=== PATIENT | male | born 1970 | race Caucasian/White ===

== ENCOUNTER → 2016-10-12 | Outpatient (CLI) | payer BC ==
--- NOTE | 2016-10-12 09:55 | US ---
EXAMINATION TYPE: US abdomen complete DATE OF EXAM: 10/12/2016 COMPARISON: NONE CLINICAL HISTORY: R10.9 ABD Pain. epigastric pain x 1 week that is worsening EXAM MEASUREMENTS: Liver Length: 13.7 cm Gallbladder Wall: 0.2 cm CBD: 0.6 cm Spleen: 10.2 cm Right Kidney: 10.9 x 5.2 x 5.1 cm Left Kidney: 11.3 x 5.9 x 5.7 cm Pancreas: visualized portions appear echogenic Liver: difficult to penetrate, some fatty sparing noted around gallbladder. Gallbladder: small 0.4 cm echogenic foci that appears stationary. Evidence for sonographic Cortez's sign: No CBD: wnl Spleen: wnl Right Kidney: No hydronephrosis or masses seen Left Kidney: No hydronephrosis or masses seen Upper IVC: wnl Abd Aorta: wnl The liver is heterogenous in its overall echo appearance may reflect fatty liver versus diffuse hepat ocellular disease. focal fatty sparing noted. The intrahepatic portion of the IVC and proximal abdom inal aorta are within normal limits. Adherent Gallstone versus polyp. Common bile duct is unremarkabl e. The visualized portions of the pancreas are homogenous. The spleen is unremarkable. Kidneys are symmetric and free of hydronephrosis. No renal lesions are seen. IMPRESSION: 1. Fatty liver with areas of focal fatty sparing. 2. Adherent gallstone versus polyp.
== END ==
LOC: RADUSWWP 09:10
PROVIDERS: ATTEND Family Medicine
DX: K76.0 Fatty (change of) liver, not elsewhere classified (principal)
CPT/HCPCS: 76700

== ENCOUNTER 2023-01-15 07:44 | Day surgery (SDC) | payer BC ==
[2023-01-13 12:24] VITALS: BMI 31.4
[~2023-01-15 07:44] MED LIST: LACTATED RINGERS 1,000 ML IV SCH; LIDOCAINE 1% (10MG/ML) FOR IV START INTRADERMA PRN
[2023-01-15] MEDS ORDERED: PROPOFOL 10 MG/ML 20 ML VIAL IV ONE (08:24)
[2023-01-15 08:26] VITALS: RESP 16; TEMP 97.8
--- NOTE | 2023-01-15 08:42 | P.PCN ---
Date of Procedure: 01/15/23 Procedure(s) Performed: BRIEF HISTORY: Patient is a 52-year-old pleasant white male scheduled for an elective colonoscopy as a part of screening for colon cancer. PROCEDURE PERFORMED: Colonoscopy with snare polypectomy. PREOPERATIVE DIAGNOSIS: Screening for colon cancer. IV sedation per Anesthesia. PROCEDURE: After informed consent was obtained, the patient, was brought into the endoscopy unit. IV sedation was administered by Anesthesia under continuous monitoring. Digital rectal examination was normal. Initially the Olympus CF-160 flexible video colonoscope was then inserted in the rectum, gradually advanced into the cecum without any difficulty. Careful examination was performed as the scope was gradually being withdrawn. Ileocecal valve and the appendiceal orifice were visualized and appeared normal. Prep was excellent. Mucosa of the cecum, normal. In the ascending colon there was a 1 cm flat polyp removed by snare polypectomy. Rest of the ascending colon, transverse colon, descending colon, appeared normal. In the sigmoid: There was a 1.2 cm polyp removed by snare polypectomy. Rest of the sigmoid colon, and rectum appeared normal. Retroflexion was performed in the rectum and no lesions were seen. The patient tolerated the procedure well. IMPRESSION: 1 cm flat ascending colon polyp status post polypectomy 1.2 cm sigmoid: Polyp status post-polypectomy RECOMMENDATIONS: Findings of this examination were discussed with the patient as well as his family. He was advised to follow with the biopsy results. If the biopsies adenoma he can have a repeat colonoscopy in 3 years..
[2023-01-15 09:12] VITALS: BP 142/76; PULSE 75
== END 2023-01-15 09:08 | disposition home or self-care (01) ==
LOC: ORWHC2ENDO 07:44
PROVIDERS: ATTEND Internal Medicine Gastroenterology
DX: Z12.11 Encounter for screening for malignant neoplasm of colon (principal); D12.5 Benign neoplasm of sigmoid colon; D12.2 Benign neoplasm of ascending colon; E78.5 Hyperlipidemia, unspecified; F17.200 Nicotine dependence, unspecified, uncomplicated
CPT/HCPCS: 88305; 45385; J2704

== ENCOUNTER 2023-11-16 08:00 | Observation (INO) | payer BC ==
[~2023-11-16 08:00] MED LIST changes: +ASPIRIN 81 MG ONE; -LACTATED RINGERS 1,000 ML IV SCH; -LIDOCAINE 1% (10MG/ML) FOR IV START INTRADERMA PRN; +NITROGLYCERIN SL TABS 0.4 MG TAB SUBLINGUAL ONE
[2023-11-16] MEDS ORDERED: NITROGLYCERIN OINT 1 INCH/GM PACKET TOPICAL ONE (08:30)
--- NOTE | 2023-12-08 15:29 | CA ---
Stress Echo Report Tono Araiza Age: 53 Gender: M : 1970 Exam Date: 11/16/2023 11:45 Exam Location: [facility] Ht (in): 73 Wt (lb): 235 Ordering Physician: jodi Referring Physician: JODI, [employer] Operator: Raymond Pearson Technologist Procedure CPT: Indication: ICD-9 Codes: Rhythm: Patient History: Cardiac Medications: Medications in past 24 hours: Contrast: N/A Stress Results Protocol: Richar Total dose(mL): na Exercise Duration (min:sec): 7:[address] Depression (mm): Angina Score: Gonzalez Score: METS: 8.7 Resting HR: 65 Resting BP: 101 / 54 Peak HR: 159 Peak BP: 201 / 63 Max Predicted HR: 165 96 % Max Predicted HR Target HR: 140 Double Product: [id number] Stress Summary: BP Response: Reason for Termination: MAX EXERTION/TARGET HR Cardiac Symptoms: NO SYMPTOMS ECG Analysis Resting ECG: Normal sinus rhythm, normal ECG Stress ECG: No abnormal ST/T wave changes with exercise Arrhythmia: None Echo Analysis Resting Echo: Normal resting echocardiogram. Peak Echo Analysis: Normal wall thickening in motion MEASUREMENTS (Male/Female) Normal Values CONCLUSIONS 1. Average exercise tolerance 2. Normal electrocardiographic response to exercise 3. Normal stress echocardiogram with no evidence of stress induced ischemia Dr. Alejandra Wheeler MD (Electronically Signed) Final Date: 16 November 2023 12:57
--- NOTE | 2023-12-14 10:18 | XR ---
Tono Araiza ID: [id number] : 1970 EXAMINATION TYPE: XR chest 2V DATE OF EXAM: 11/16/2023 COMPARISON: None HISTORY: 53 year-old male chest pain for 2 hours TECHNIQUE: PA and lateral views FINDINGS: Heart normal size. Aorta and pulmonary vasculature within normal limits. There is some mild strandy/p atchy density in the lower lungs. Mild hyperinflation. Otherwise, no consolidation or pleural effusio n. IMPRESSION: Correlate for underlying COPD. Some mild densities of the lower lung suspected atelectasis. No defin ite acute process.
== END 2023-11-16 15:33 | disposition home or self-care (01) ==
LOC: 1SOBS 08:00
PROVIDERS: ADMIT Internal Medicine; ATTEND Internal Medicine
DX: R07.89 Other chest pain (principal); E78.5 Hyperlipidemia, unspecified; K21.9 Gastro-esophageal reflux disease without esophagitis; R60.9 Edema, unspecified; J44.9 Chronic obstructive pulmonary disease, unspecified; F17.210 Nicotine dependence, cigarettes, uncomplicated; Z79.899 Other long term (current) drug therapy
CPT/HCPCS: 71046; 83036; 93005; 93351; 99285